=== PATIENT | male | born 1995 | race Caucasian/White ===

== ENCOUNTER → 2020-08-18 | Outpatient (CLI) | payer SELFPAY | LOC: M LABSMTC 14:31 | PROVIDERS: ATTEND Pediatrics | DX: Z20.822 Contact with and (suspected) exposure to COVID-19 (principal) ==

== ENCOUNTER → 2020-12-24 | Outpatient (CLI) | payer OTHER ==
--- NOTE | 2020-12-31 09:35 | ECHO ---
ECHOCARDIOGRAM DATE OF PROCEDURE: 12/24/2020 Age: 25 Gender: Male Height: Weight: REFERRING PHYSICIAN: Travon Cardona DO. PATIENT LOCATION: Outpatient. REASON FOR STUDY: Abnormal EKG. 2D MEASUREMENTS: IVS 1.0 cm LV 5.4 cm LVPW 1.0 cm LA 2.9 cm Aorta 3.2 cm DOPPLER MEASUREMENT Peak velocity across the aortic valve 0.7 m/s Peak velocity across the LVOT 0.3 m/s with a ratio of 1.3 2D COMMENTS: 1. Normal left ventricular size, wall thickness, and normal global left ventricular systolic function. The estimated left ventricular systolic ejection fraction is 60% to 65%. 2. Normal left atrium. Normal right atrium and right ventricle. The atrial septum appeared to be normal without evidence of defect or shunt. 3. Normal aortic root. 4. No pericardial effusion. 5. The aortic valve, mitral valve, tricuspid valve, and pulmonic valve appear to be normal. The proximal pulmonary artery branches also appear to be normal. The inferior vena cava was not visualized. DOPPLER: Detects trace mitral regurgitation, trace tricuspid regurgitation, and mild pulmonic regurgitation. Assessment of the left ventricular diastolic function appeared to be normal. IMPRESSION: 1. Normal global left ventricular systolic and diastolic function. 2. Trace mitral regurgitation with mitral annular calcification. 3. Trace tricuspid regurgitation.
== END ==
LOC: M CARPUL 14:27
PROVIDERS: ATTEND Family Medicine
DX: I34.0 Nonrheumatic mitral (valve) insufficiency (principal); I36.1 Nonrheumatic tricuspid (valve) insufficiency; I37.1 Nonrheumatic pulmonary valve insufficiency; I45.19 Other right bundle-branch block